=== PATIENT | female | born 1990 | race African-American/Black ===

== ENCOUNTER 2017-06-27 12:29 | Inpatient (IN) | payer SELFPAY ==
[2017-06-27] VITALS (10 sets, daily range): BP systolic 114–172; BP diastolic 56–87
[~2017-06-27] VITALS: Ht 167.6 cm; Wt 77.1 kg
[~2017-06-27 12:29] MED LIST: AMOXICILLIN500 MG OR; AMOXICILLIN500 MG PO; DENEIS CURRENT MEDS; DEP0PROVERA; IBUPROFEN600 MG PO; KENALOG15 GM/TUBE EX; LORTAB 10 PO; LORTAB 5/3255 MG PO; LORTAB5 PO; MONISTAT 72 % VA; NAPROSYN375 MG PO; PENICILLN VK250 MG OR; PENICILLN VK500 M1 OR; PENICILLN VK500 MG OR; PENICILLN VK500 MG PO; PERCOCET 5/325M1 TAB OR; PRE-NATAL PO; PRENATAL1 TA1 PO; TRAMADOL HCL50 MG OR; TRAMADOL HCL50 MG PO; TYLENOL # 31 TA1 PO; ULTRAM50 M1 PO; ULTRAM50 MG PO; WELLBUTRIN150 M1 PO
[2017-06-27 13:32] LABS: URINE BILIRUBIN - DIPSTICK NEGATIVE (NEGATIVE); URINE BLOOD DIPSTICK MODERATE (NEGATIVE); URINE COLOR YELLOW; URINE GLUCOSE - DIPSTICK NEGATIVE (NEGATIVE); URINE KETONE NEGATIVE (NEGATIVE); URINE NITRITE - DIPSTICK NEGATIVE (Negative); URINE PROTEIN - DIPSTICK NEGATIVE (NEG-TRACE)
[2017-06-27 13:34] LABS: URINE CLARITY SLIGHT CLOUDY; URINE LEUK ESTERASE TRACE (NEGATIVE)
[2017-06-27 13:35] LABS: BARBITURATES NEGATIVE (NEGATIVE); COCAINE NEGATIVE (NEGATIVE); METHADONE NEGATIVE (NEGATIVE); TETRAHYDROCANNABIONOL NEGATIVE (NEGATIVE); TRICYLIC ANTIDEPRESSANTS NEGATIVE (NEGATIVE); URINE SQUAMOUS EPITHELIAL CELL FEW EPI/hpf (0-FEW); URINE WBC 0-2 WBC/hpf (0-5)
[2017-06-27 13:36] LABS: OXCYCODONE NEGATIVE (NEGATIVE)
[2017-06-27 13:47] LABS: HEMATOCRIT 34.8 % (37.0-47.0); HEMOGLOBIN 11.4 g/dl (12.0-16.0); IMMATURE GRANULOCYTES 0.3 % (0.0-1.0); MEAN CELL VOLUME 89.2 fL CALC (80.0-100.0); MEAN CORPUSCULAR HGB 29.2 pG CALC (26.0-32.0); MEAN CORPUSCULAR HGB CONC 32.8 g/L CALC (32.0-36.0); NEUT# 4.64 thou/uL (2.00-7.15); RED BLOOD COUNT 3.9 mill/uL (4.20-5.60); RED CELL DISTRI WIDTH 12.9 % (11.5-15.5)
[2017-06-27 13:57] LABS: ALBUMIN 3.5 g/dL (3.2-5.0); ALKALINE PHOSPHATASE 156 u/l (38-126); ANION GAP 15 (6-22 (CALC)); BILIRUBIN, TOTAL 0.6 mg/dL (0.0-1.4); BUN 4 mg/dL (7-17); BUN/CREATININE RATIO 6 (12-20 (CALC)); CALCIUM 8.8 mg/dL (8.4-10.2); CARBON DIOXIDE 19 mmol/l (22-30); CHLORIDE 106 mmol/l (95-108); CREATININE 0.7 mg/dL (0.5-1.0); GFR > 60 ML/MIN (>=60 (CALC)); GFR FOR AFR.AMER. > 60 ML/MIN (>=60 (CALC)); GLUCOSE 76 mg/dL (65-105); POTASSIUM 3.9 mmol/l (3.5-5.1); SGOT/AST 25 u/l (14-36); SGPT/ALT 26 u/l (9-52); SODIUM 136 mmol/l (137-146); TOTAL PROTEIN 7.2 g/dL (6.3-8.2)
[2017-06-28 04:55] VITALS: BP 116/84
[2017-06-28 08:08] LABS: HEMATOCRIT 31.5 % (37.0-47.0); HEMOGLOBIN 10.3 g/dl (12.0-16.0); IMMATURE GRANULOCYTES 0.4 % (0.0-1.0); MEAN CELL VOLUME 89.7 fL CALC (80.0-100.0); MEAN CORPUSCULAR HGB 29.3 pG CALC (26.0-32.0); MEAN CORPUSCULAR HGB CONC 32.7 g/L CALC (32.0-36.0); NEUT# 5.34 thou/uL (2.00-7.15); RED BLOOD COUNT 3.51 mill/uL (4.20-5.60); RED CELL DISTRI WIDTH 12.9 % (11.5-15.5)
[2017-06-28 17:50] VITALS: BP 114/66
[2017-06-28 21:38] VITALS: BP 136/76
[2017-06-29 06:10] VITALS: BP 139/88
[2017-06-29] MEDS ORDERED: IBUPROFEN600 MG PO (10:19)
== END 2017-06-29 14:10 | disposition home or self-care (01) | DRG 774 ==
LOC: OB 12:29 → OBOP 12:29 → OB 12:45
PROVIDERS: ADMIT Obstetrics & Gynecology; ATTEND Obstetrics & Gynecology
PROC: 10E0XZZ Delivery of Products of Conception, External Approach (ICD-10-PCS; principal; 2017-06-27)
PROC: 10907ZC Drainage of Amniotic Fluid, Therapeutic from Products of Conception, Via Natural or Artificial Opening (ICD-10-PCS; 2017-06-27)
DX: O67.9 Intrapartum hemorrhage, unspecified (principal); O77.0 Labor and delivery complicated by meconium in amniotic fluid; O69.81X0 Labor and delivery complicated by cord around neck, without compression, not applicable or unspecified; Z3A.00 Weeks of gestation of pregnancy not specified; Z37.0 Single live birth
CPT/HCPCS: J2540; J2788

== ENCOUNTER 2017-07-04 07:52 | Emergency (ER) | payer OTHER ==
[~2017-07-04] VITALS: Ht 167.6 cm; Wt 75.5 kg
[2017-07-04] MEDS ORDERED: AUGMENTIN875TAB PO (08:07)
[2017-07-04] MEDS ORDERED: MOTRIN400 MG PO (08:08)
[2017-07-04 08:16] VITALS: BP 129/91
== END 2017-07-04 08:22 | disposition home or self-care (01) | DRG 159 ==
LOC: ED 07:52
DX: K08.89 Other specified disorders of teeth and supporting structures (principal)

== ENCOUNTER 2017-09-27 10:13 | Emergency (ER) | payer OTHER ==
[~2017-09-27] VITALS: Ht 167.6 cm; Wt 75.0 kg
[~2017-09-27 10:13] MED LIST changes: +AUGMENTIN875TAB PO; +MOTRIN400 MG PO
[2017-09-27] MEDS ORDERED: NAPROSYN500 MG PO (10:40)
[2017-09-27 10:45] VITALS: BP 123/79
== END 2017-09-27 10:45 | disposition home or self-care (01) | DRG 563 ==
LOC: ED 10:13
DX: S46.911A Strain of unspecified muscle, fascia and tendon at shoulder and upper arm level, right arm, initial encounter (principal); M79.601 Pain in right arm; X50.9XXA Other and unspecified overexertion or strenuous movements or postures, initial encounter; Y93.E9 Activity, other interior property and clothing maintenance; Y92.009 Unspecified place in unspecified non-institutional (private) residence as the place of occurrence of the external cause